=== PATIENT | female | born 1985 | race Hispanic/Latino ===

== ENCOUNTER 2024-09-08 18:04 | Emergency (ER) | payer SELFPAY ==
[2024-09-08 18:09] VITALS: BP 153/94
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
[2024-09-08 20:24] VITALS: BP 128/83
[2024-09-08] MEDS: MOTRIN 600 MG PO (20:32)
== END 2024-09-08 20:43 | disposition home or self-care (01) ==
LOC: EMR 18:04
PROVIDERS: EMERGENCY PHYSICIAN Student in an Organized Health Care Education/Training Program
DX: M25.552 Pain in left hip (principal); M25.522 Pain in left elbow; R20.2 Paresthesia of skin; M54.50 Low back pain, unspecified; M25.562 Pain in left knee; M54.2 Cervicalgia; R07.81 Pleurodynia; V49.40XA Driver injured in collision with unspecified motor vehicles in traffic accident, initial encounter; Y92.89 Other specified places as the place of occurrence of the external cause; M54.30 Sciatica, unspecified side; J45.909 Unspecified asthma, uncomplicated; F41.9 Anxiety disorder, unspecified; F32.A Depression, unspecified; F90.9 Attention-deficit hyperactivity disorder, unspecified type; F17.290 Nicotine dependence, other tobacco product, uncomplicated
CPT/HCPCS: 99283

== ENCOUNTER 2025-05-21 20:12 | Emergency (ER) | payer OTHER, SELFPAY ==
[2025-05-21 20:23] VITALS: BP 149/90
[2025-05-21 20:52] LABS: COVID-19 Antigen Negative (Negative)
== END 2025-05-21 21:54 ==
LOC: EMR 20:12
PROVIDERS: Student in an Organized Health Care Education/Training Program
DX: R51.9 Headache, unspecified (principal); R09.89 Other specified symptoms and signs involving the circulatory and respiratory systems; Z53.21 Procedure and treatment not carried out due to patient leaving prior to being seen by health care provider; Z11.52 Encounter for screening for COVID-19
CPT/HCPCS: 87502; 87811